=== PATIENT | female | born 1940 ===

== ENCOUNTER 2017-02-26 06:09 | Observation (INO) | payer MEDICARE, OTHER ==
--- NOTE | 2017-02-26 06:50 | ED PDOC ---
Arrival/HPI - General Chief Complaint: Shortness Of Breath Time Seen by Provider: 02/26/17 06:28 - History of Present Illness Narrative History of Present Illness (Text): 02/26/17 06:47 Pt. to ED PMHX of HTN,Dementia with c/o vague chest discomfort this AM associated with some SOB.As per the family pt. has been experiencing sob past few days.No fever,chills or cough.No N/V/D. Past Medical History - Provider Review Nursing Documentation Reviewed: Yes - Travel History Have you recently traveled outside [place] w/in the past 3 mons?: No - Infectious Disease Hx of Infectious Diseases: None - Reproductive Menopause: Yes - Cardiac Hx Hypertension: Yes - Psychiatric Hx Substance Use: No Family/Social History - Physician Review Nursing Documentation Reviewed: Yes Family/Social History: CAD/WA Smoking Status: Never Smoked Hx Alcohol Use: No Hx Substance Use: No Allergies/Home Meds Allergies/Adverse Reactions: Allergies No Known Allergies Allergy (Verified 08/10/14 11:39) Home Medications: Home Meds Medication Instructions Recorded Confirmed Ezetimibe [Zetia] 10 mg PO DAILY 08/10/14 02/26/17 Aspirin [Adult Low Dose Aspirin EC] 81 mg PO DAILY 05/23/16 02/26/17 Famotidine [Pepcid] 40 mg PO HS 05/23/16 02/26/17 Olmesartan Medoxomil 20 mg PO DAILY 05/23/16 02/26/17 [id number] Ethyl Esters 1 GM 2 tsp PO DAILY 05/23/16 02/26/17 [Lovaza] Cholecalciferol (Vitamin D3) 5 drop PO DAILY 02/26/17 02/26/17 [Vitamin D3] Coenzyme Q10 [Co Q-10] 50 mg PO BID 02/26/17 02/26/17 Donepezil HCl [Aricept] 5 mg PO HS 02/26/17 02/26/17 Famotidine [Pepcid] 40 mg PO HS 02/26/17 02/26/17 Multivit-Min/FA/Lycopen/Lutein 1 tab PO DAILY 02/26/17 02/26/17 [Centrum Silver Tablet] Pantoprazole [Protonix] 40 mg PO DAILY 02/26/17 02/26/17 Review of Systems - Review of Systems Constitutional: Normal Eyes: Normal ENT: Normal Respiratory: SOB Cardiovascular: Chest Pain Gastrointestinal: Normal Genitourinary Female: Normal Musculoskeletal: Normal Skin: Normal Neurological: Normal Endocrine: Normal Hemo/Lymphatic: Normal Psychiatric: Normal Physical Exam Vital Signs Temp Pulse Resp BP Pulse Ox 02/26/17 06:09 97.5 F L 71 26 H 157/96 H 99 Temperature: Afebrile Blood Pressure: Normal Pulse: Regular Respiratory Rate: Normal Appearance: Positive for: Well-Appearing, Non-Toxic, Comfortable Pain Distress: None Mental Status: Positive for: Alert and Oriented X 3 - Systems Exam Head: Present: Atraumatic, Normocephalic Pupils: Present: PERRL Extroacular Muscles: Present: EOMI Conjunctiva: Present: Normal Mouth: Present: Moist Mucous Membranes Neck: Present: Normal Range of Motion Respiratory/Chest: Present: Clear to Auscultation, Good Air Exchange. No: Respiratory Distress, Accessory Muscle Use Cardiovascular: Present: Regular Rate and Rhythm, Normal S1, S2. No: Murmurs Abdomen: Present: Normal Bowel Sounds. No: Tenderness, Distention, Peritoneal Signs Back: Present: Normal Inspection Upper Extremity: Present: Normal Inspection. No: Cyanosis, Edema Lower Extremity: Present: Normal Inspection, Normal ROM, Neurovascularly Intact. No: Edema, Emma's Sign, Tenderness, Swelling, Erythema Neurological: Present: GCS=15, CN II-XII Intact, Speech Normal, Motor Func Grossly Intact, Normal Sensory Function Skin: Present: Warm, Dry, Normal Color. No: Rashes Psychiatric: Present: Alert, Oriented x 3, Normal Insight, Normal Concentration Medical Decision Making - RAD Interpretation Radiology Orders: 02/26/17 06:24 CHEST PORTABLE [RAD] Stat - Transfer of Care Patient signed out to Dr:: Izabella Pending Labs:: Labs/CXR/EKG/reassess/final disposition Disposition/Present on Arrival - Present on Arrival Any Indicators Present on Arrival: No History of DVT/PE: No History of Uncontrolled Diabetes: No Urinary Catheter: No - Disposition Have Diagnosis and Disposition been Completed?: No Diagnosis: Chest pain, Shortness of breath Disposition Time: 07:00 Condition: STABLE Discharge Instructions (ExitCare): Chest Pain (ED) Forms: [employer] (Welsh)
[2017-02-26 07:00] LABS: BASO # 0.04 K/mm3 (0.0-2.0); BASO % 0.7 % (0.0-3.0); EOS # 0.1 (0.0-0.7); EOS % 1.4 % (1.5-5.0); GRAN # 2.31 (1.4-6.5); GRAN % 41.7 % (50.0-68.0); HEMOGLOBIN 12.2 g/dL (12.0-16.0); LYMPH # 2.8 (1.2-3.4); LYMPH % 49.5 % (22.0-35.0); MEAN CELL VOLUME 87.9 fl (80.0-105.0); MEAN CORPUSCULAR HGB CONC 33.1 g/dl (31.0-37.0); MEAN PLATELET VOLUME 10.5 fl (7.0-11.0); MONO # 0.4 (0.1-0.6); MONO % 6.7 % (1.0-6.0); RBC 4.2 10^6/uL (3.5-6.1); RED CELL DISTRIBUTION WIDTH 14.3 % (11.5-14.5); WHITE BLOOD COUNT 5.6 10^3/ul (4.5-11.0)
[2017-02-26 07:05] LABS: ALB/GLOB RATIO 1.4 (1.1-1.8); ALBUMIN 4.1 g/dL (3.0-4.8); ALT/SGPT 24 U/L (7-56); AST/SGOT 29 U/L (14-36); BLOOD UREA NITROGEN 18 mg/dL (7-21); CALCIUM 9.7 mg/dL (8.4-10.5); GFR AFRICAN-AMERICAN 53; GFR NON-AFRICAN AMERICAN 44
[2017-02-26 07:06] LABS: PARTIAL THROMBOPLASTIN TIME 28.5 Seconds (25.1-36.5); PROTHROMBIN TIME 11.5 SECONDS (9.4-12.5)
[2017-02-26 07:18] LABS: TROPONIN I < 0.01 ng/mL
--- NOTE | 2017-02-26 09:33 | RAD ---
HISTORY: sob COMPARISON: 12/05/2015 FINDINGS: LUNGS: No active pulmonary disease. PLEURA: No significant pleural effusion identified, no pneumothorax apparent. CARDIOVASCULAR: Normal. OSSEOUS STRUCTURES: No significant abnormalities. VISUALIZED UPPER ABDOMEN: Normal. OTHER FINDINGS: None. IMPRESSION: No active disease.
[2017-02-26] MEDS ORDERED: OLMESARTAN MEDOXOMIL 20 MG PO SCH ×2 (10:00)
--- NOTE | 2017-02-26 10:02 | ED PDOC ---
Physical Exam Vital Signs Reviewed: Yes Vital Signs Temp Pulse Resp BP Pulse Ox 02/26/17 09:57 73 02/26/17 08:31 61 18 134/78 100 02/26/17 06:09 97.5 F L 71 26 H 157/96 H 99 Appearance: Positive for: Well-Appearing, Non-Toxic, Comfortable Medical Decision Making ED Course and Treatment: 02/26/17 09:57 Patient endorsed to me from previous shift. Prior labs and EKG reviewed. I reviewed history with family at bedside and re-examined patient. Patient on re-exam with no complaints. Currently denies any chest pain or shortness of breath, although sons describe patient at 530 am experienced chest discomfort and was "breathing hard". Currently those symptoms resolved, cxr unremarkable. EKG with t wave changes with no prior for comparison. It is noted Dr. Wilson is her exchange clerk and she had stress test in May of 2016 which was reportedly unremarkable. ASA ordered. Dr. Ames consulted an evaluated patient. She remains comfortable at this time, patient admitted to hospitalist service covering fro Dr. Samaniego. - Lab Interpretations Lab Results: 02/26/17 06:30 02/26/17 06:30 Lab Results 02/26/17 06:50: NT-Pro-B Natriuret Pep 155 02/26/17 06:30: Sodium 142, Potassium 3.8, Chloride 104, Carbon Dioxide 25, Anion Gap 16, BUN 18, Creatinine 1.2, Est GFR ( Amer) 53, Est GFR (Non- Af Amer) 44, Random Glucose 106, Calcium 9.7, Total Bilirubin 1.4 H, AST 29, ALT 24, Alkaline Phosphatase 56, Lactate Dehydrogenase 356, Total Creatine Kinase 63, Troponin I < 0.01, Total Protein 7.2, Albumin 4.1, Globulin 3.0, Albumin/Globulin Ratio 1.4 02/26/17 06:30: PT 11.5, INR 1.00, APTT 28.5 02/26/17 06:30: WBC 5.6, RBC 4.20, Hgb 12.2, Hct 36.9, MCV 87.9, MCH 29.0, MCHC 33.1, RDW 14.3, Plt Count 215, MPV 10.5, Gran % 41.7 L, Lymph % (Auto) 49.5 H, Bowman % (Auto) 6.7 H, Eos % (Auto) 1.4 L, Baso % (Auto) 0.7, Gran # 2.31, Lymph # 2.8, Bowman # 0.4, Eos # 0.1, Baso # 0.04 - RAD Interpretation Radiology Orders: 02/26/17 06:24 CHEST PORTABLE [RAD] Stat - Medication Orders Current Medication Orders: Aspirin (Ecotrin) 81 mg PO DAILY [facility] Last Admin: 02/26/17 09:16 Dose: Ezetimibe (Zetia) 10 mg PO DAILY [facility] Last Admin: 02/26/17 09:57 Dose: 10 mg Famotidine (Pepcid) [address] [facility] Losartan Potassium (Cozaar) 50 mg PO DAILY [facility] Last Admin: 02/26/17 09:57 Dose: 50 mg MAR Pulse and Blood Pressure Document 02/26/17 09:57 SRE (Rec: 02/26/17 09:57 SRE [id number]) Pulse Pulse Rate (60-90 beats/min) 73 Discontinued Medications Aspirin (Aspirin Chewable) 81 mg PO STAT STA Stop: 02/26/17 07:29 Last Admin: 02/26/17 08:06 Dose: Aspirin (Aspirin Chewable) 324 mg PO STAT STA Stop: 02/26/17 08:03 Last Admin: 02/26/17 08:18 Dose: 324 mg Aspirin (Aspirin) 325 mg PO STAT STA Stop: 02/26/17 08:03 Last Admin: 02/26/17 08:06 Dose: Clopidogrel Bisulfate (Plavix) 300 mg PO STAT STA Stop: 02/26/17 08:04 Last Admin: 02/26/17 08:18 Dose: 300 mg Disposition/Present on Arrival - Present on Arrival Any Indicators Present on Arrival: No History of DVT/PE: No History of Uncontrolled Diabetes: No Urinary Catheter: No History of Decub. Ulcer: No History Surgical Site Infection Following: None - Disposition Have Diagnosis and Disposition been Completed?: Yes Diagnosis: Chest pain, Shortness of breath Disposition: HOSPITALIZED Disposition Time: 08:45 Patient Plan: Admission, Telemetry Patient Problems: Current Active Problems Problem Status Onset Chest pain Acute Shortness of breath Acute Condition: STABLE
--- NOTE | 2017-02-26 11:22 | CP.PCM.HP ---
<Phyllis Desai - Last Filed: 02/26/17 13:35> History of Present Illness - History of Present Illness History of Present Illness: PGY-2 H&P for hospitalist service 76 yo female with PMH of HTN, [id number], gastric ulcer and dementia presents to ED with chest discomfort. Patient states that this morning she was sitting on her cough when she began to have a warm sensation in the middle of her chest. She denies any radiation to her neck, arms, back or abd. It resolved when she received oxygen from EMS. She states that she started panting and became lightheaded during the episode. She also states that over the past week she has had an intermittent pinching sensation in her chest. She denies any previous episodes. She states that oit is not associated with eating or position. She also reports increased fatigue. She denies fever, chill, abd pain , n/v, diarrhea, decreased appetite. Family states that a few months ago she began taking donepezil for increased forgetfulness. PMH: TN, [id number], gastric ulcer and dementia PSH: denies suegry previous EGD social history: deneis smoking, alcohol use, illicit drug use allergy: nkda family history: brothers- heart disease Present on Admission - Present on Admission Any Indicators Present on Admission: No Review of Systems - Constitutional Constitutional: Fatigue. absent: Chills, Fever, Headache - EENT Eyes: absent: Change in Vision Nose/Mouth/Throat: absent: Nasal Congestion, Nasal Discharge, Sore Throat - Cardiovascular Cardiovascular: Chest Pain, Dyspnea, Lightheadedness. absent: Edema, Leg Edema , Leg Ulcers, Syncope - Respiratory Respiratory: Dyspnea. absent: Cough, Hemoptysis - Gastrointestinal Gastrointestinal: absent: Abdominal Pain, Constipation, Diarrhea, Dysphagia, Nausea, Vomiting - Genitourinary Genitourinary: absent: Difficulty Urinating, Dysuria - Musculoskeletal Musculoskeletal: absent: Abnormal Gait, Back Pain, Neck Pain, Radiating Pain into Limb - Neurological Neurological: absent: Abnormal Gait, Dizziness, Focal Weakness, Syncope - Hematologic/Lymphatic Hematologic: absent: Easy Bleeding, Easy Bruising Past Patient History - Infectious Disease Hx of Infectious Diseases: None - Past Social History Smoking Status: Never Smoked - CARDIAC Hx Hypertension: Yes - PSYCHIATRIC Hx Substance Use: No Meds Allergies/Adverse Reactions: Allergies Allergy/AdvReac Type Severity Reaction Status Date / Time No Known Allergies Allergy Verified 02/26/17 12:02 Physical Exam - Constitutional Appears: Well, No Acute Distress - Head Exam Head Exam: ATRAUMATIC, NORMAL INSPECTION, NORMOCEPHALIC - Eye Exam Eye Exam: Normal appearance - ENT Exam ENT Exam: Mucous Membranes Moist - Respiratory Exam Respiratory Exam: Clear to Auscultation Bilateral, NORMAL BREATHING PATTERN. absent: Rhonchi, Wheezes, Respiratory Distress, Stridor - Cardiovascular Exam Cardiovascular Exam: REGULAR RHYTHM, +S1, +S2. absent: Tachycardia, Diastolic murmur, Systolic Murmur - GI/Abdominal Exam GI & Abdominal Exam: Normal Bowel Sounds, Soft. absent: Distended, Firm, Tenderness - Extremities Exam Extremities exam: Positive for: normal inspection. Negative for: pedal edema, tenderness - Neurological Exam Neurological exam: Alert, Oriented x3 - Skin Skin Exam: Dry, Intact, Normal Color, Warm Results - Vital Signs Recent Vital Signs: Last Vital Signs Temp 97.5 F L 02/26/17 06:09 Pulse 72 02/26/17 10:01 Resp 14 02/26/17 10:01 BP 150/88 02/26/17 10:01 Pulse Ox 100 02/26/17 10:01 - Labs Result Diagrams: 02/26/17 06:30 02/26/17 06:30 Assessment & Plan - Assessment and Plan (Free Text) Assessment: 76 yo female with PMH of HTN, [id number], gastric ulcer and dementia presents to ED with chest discomfort. Plan: 1. chest discomfort - r/o acs - troponins neg x2, continue to trend - EKG showed sinus rhythm with 1st degree AV block, nonspecific T wave abnormalities, no previous ekg for comparison - continue home meds asa 81mg and zetia - continue ARB - consider started b carrie if chest pain returns - cardiology consulted, will go or cardiac cath this afternoon GI ppx- pepcid DVT ppx- SCDs <Alfreda Jin - Last Filed: 02/26/17 16:29> Results - Vital Signs Recent Vital Signs: Last Vital Signs Temp 98.1 F 02/26/17 13:46 Pulse 74 02/26/17 13:46 Resp 18 02/26/17 13:46 BP 141/72 02/26/17 13:46 Pulse Ox 99 02/26/17 13:10 - Labs Result Diagrams: 02/26/17 06:30 02/26/17 06:30 Labs: Laboratory Results - last 24 hr 02/26/17 11:50 Troponin I < 0.01 Attending/Attestation - Attestation I have personally seen and examined this patient.: Yes I have fully participated in the care of the patient.: Yes I have reviewed all pertinent clinical information: Yes Notes (Text): 02/26/17 16:27 Patient was seen and examined with medical scientific liaison. Family at bed side 76 yo female with PMH of HTN, [id number], gastric ulcer and dementia present with atypical chest pain,EKG shwed T wave inversion in septal lead.Patient was evaluated by cardiology and is scheduled for cardiac cath today.We will follow up cardiac cath Management plan was discussed in detail with patient and family in detail. Education was provided.
--- NOTE | 2017-02-26 12:21 | CARD ---
APPROVED REPORT EKG Measurement Heart [id number] MA [id number] <Conclusion> Sinus rhythm with 1st degree AV block Nonspecific T wave abnormality Abnormal ECG
[2017-02-26 13:02] VITALS: O2SAT 99
[2017-02-26 14:01] VITALS: BMI 23.3
[2017-02-26] MEDS ORDERED: Influenza Vaccine 60 mcg/0.5 mL SYR (4YR UP) IM ONE (14:01)
[2017-02-26] MEDS ORDERED: Pneumococcal 23-Valent Vaccine IM ONE (14:01)
[2017-02-26] MEDS ORDERED: Iodixanol 320 MG/ML 100 ML BOTTLE IV ONE (14:34)
[2017-02-26] MEDS ORDERED: Lidocaine 2% Inj (20ml) ONE (14:34)
[2017-02-26] MEDS ORDERED: Nitroglycerin 50mg in D5W 50 MG/250 ML BOTTLE IV ONE (14:35)
[2017-02-26] MEDS ORDERED: Iodixanol 320 MG/ML 200 ML BOTTLE IV ONE (14:35)
[2017-02-26] MEDS ORDERED: HEPARIN SODIUM/NS 2,000 ML IV ONE (14:35)
[2017-02-26] MEDS ORDERED: Midazolam 2 MG/2 ML VIAL ONE (15:15)
[2017-02-26] MEDS ORDERED: Sodium Chloride 0.9% 1,000 ML IV SCH (16:15)
--- NOTE | 2017-02-26 17:38 | CARD ---
APPROVED REPORT Procedure(s) performed: Left Heart Catheterization HISTORY The patient is a 76 year-old female with a history of : peripheral vascular disease, hypertension , dyslipidemia , Admitted with ACS/ unstable angina. INDICATION The indication(s) include : unstable angina . CASE TECHNIQUE The patient was brought emergently to the Cardiac Catheterization Laboratory in a fasting state and was prepped and draped in a sterile manner. The right femoral groin was infiltrated with 2% Lidocaine subcutaneous anesthesia. A 6FR Tempered MindDESACLEDA Bank ACCESS KIT sheath was inserted into the right femoral artery without difficulty. Coronary angiography was performed using coronary diagnostic catheters. The left coronary system was accessed and visualized with a Diagnostic,5 Fr JL 4 catheter. The right coronary system was accessed and visualized with a Diagnostic ,5 Fr JR 4 catheter. The left ventricle was accessed and visualized with a 5 Fr Pigtail 145 (Angled) catheter. Left ventricular/Aortic Valve gradient assessed on pullback. Left ventriculogram was performed in [place] projection. Closure device was deployed with a 6 Fr / 7 Fr MynxGrip without any complications. The patient tolerated the procedure well and there were no complications associated with the procedure. Vessel Analysis The patient's coronary anatomy is right dominant. The left main coronary artery is a large size vessel with intimal irregularities and without significant stenosis. The left main trifurcates to the left anterior descending, circumflex, and ramus. The left anterior descending artery is a medium size vessel with diffuse calcification noted throughout this vessel and without significant stenosis. The first diagonal branch is a small size vessel with intimal irregularities and without significant stenosis. The second diagonal branch is a small size vessel with intimal irregularities and without significant stenosis. The third diagonal branch is a small size vessel with intimal irregularities and without significant stenosis. The circumflex artery is a medium size vessel with diffuse calcification noted throughout this vessel and without significant stenosis. There is a 55% stenosis in the very distal segment. The first obtuse marginal branch is a medium size vessel with intimal irregularities and without significant stenosis. The ramus intermedius artery is a medium size vessel with intimal irregularities and without significant stenosis. The right coronary artery is a large size vessel with intimal irregularities and without significant stenosis. The right posterior descending artery is a large size vessel without significant stenosis. Left Ventricle The left ventricle is normal in size with normal contractility. There was no cardiomyopathy. The left ventricular ejection fraction is estimated to be 55-60%. The left ventricular end diastolic pressure is 16 mmHg. There was no gradient across the aortic valve upon pullback. Conclusion Non- Obstructive CAD limited to very distal Cx, Preserved LV Fx. EF-55-60%, EDP-16 mmof hg. Recommendations Aggressive Medical TherapyCardiac Risk Reduction Program cc; Drs. Bueno / Steve.
--- NOTE | 2017-02-26 19:26 | CON ---
DATE: 02/26/2017 REASON FOR CONSULTATION: Followup chest pain, unstable angina. BRIEF CLINICAL HISTORY: A 76-year-old female with past medical history of gastroesophageal reflux, hypertension, hyperlipidemia, came in with a chest pain. The patient said that she woke up from the chest pain, tightness in the chest, and feeling burning sensation in the tarso. Denies any nausea or vomiting. Denies any diaphoresis. Feels later on palpitations, but no chest pain. The chest pain is completely resolved by the time the patient came to the ER. PAST MEDICAL HISTORY: Significant for hypertension, hyperlipidemia, history of stress test in 05/2016. CURRENT MEDICATION: The patient at home is taking vitamin D3, Pitcher 3, coenzyme, Aricept, Pepcid, Zetia, olmesartan, aspirin, famotidine and Pepcid. ALLERGIES: NO KNOWN DRUG ALLERGY. PREVIOUS CARDIAC WORKUP: As follows, the patient had a stress test in 05/2015, that shows essentially normal myocardial perfusion study. Ejection fraction 70%, in compared to last on 08/10/2014, there is no significant change. No segmental wall motion abnormality is noted. The patient has echo done in Dr. Wilson's office which shows no significant problem as per son. He is not available as of yet for review. REVIEW OF SYSTEMS: A 14-point review of the system as per HPI. PHYSICAL EXAMINATION VITAL SIGNS: Temperature afebrile, heart rate 60, blood pressure 134/78. HEENT: PERRLA. Extraocular muscles intact. NECK: Supple. No carotid bruits or thyromegaly. CHEST: Clear to auscultation. HEART: S1 and S2 regular. ABDOMEN: Soft. EXTREMITIES: Clubbing or cyanosis negative. LABORATORY DATA: EKG shows normal sinus. T-wave inversion IV, V, II, III and lead V2, V3. Blood workup as follows; WBC 5.6, hemoglobin 12.8, hematocrit 36.9 and platelet count 215. Chemistry shows sodium 140, potassium 3.8, chloride 104, carbon dioxide 25, anion gap of 16, BUN 16, and creatinine 1.2. BNP 155. Troponin 0.11. IMPRESSION: Unstable angina, hypertension, hyperlipidemia, multiple coronary artery disease. The patient has a stress test in 05/2016, essentially negative. The patient was admitted with chest pain, tightness in the chest, and palpitations. Typical unstable angina. RECOMMENDATIONS: Discussed with the patient, the patient agreed. We will proceed for cardiac catheterization. Further recommend after the cardiac catheterization. We will follow with you. Thank you Dr. Sena, for providing us the opportunity in taking care of the patient, Peyton Wyman. Alfreda Ames MD
[2017-02-27 05:50] VITALS: RESP 20; TEMP 97.7
[2017-02-27 06:30] LABS: BASO # 0.03 K/mm3 (0.0-2.0); BASO % 0.5 % (0.0-3.0); EOS # 0.1 (0.0-0.7); EOS % 1.4 % (1.5-5.0); GRAN # 3.35 (1.4-6.5); GRAN % 52.9 % (50.0-68.0); HEMOGLOBIN 11.5 g/dL (12.0-16.0); LYMPH # 2.4 (1.2-3.4); LYMPH % 38.3 % (22.0-35.0); MEAN CELL VOLUME 88.4 fl (80.0-105.0); MEAN CORPUSCULAR HEMOGLOBIN 29.6 pg (25.0-35.0); MEAN CORPUSCULAR HGB CONC 33.5 g/dl (31.0-37.0); MEAN PLATELET VOLUME 10.3 fl (7.0-11.0); MONO # 0.4 (0.1-0.6); MONO % 6.9 % (1.0-6.0); RBC 3.88 10^6/uL (3.5-6.1); RED CELL DISTRIBUTION WIDTH 14.5 % (11.5-14.5); WHITE BLOOD COUNT 6.3 10^3/ul (4.5-11.0)
[2017-02-27 06:49] LABS: ALB/GLOB RATIO 1.3 (1.1-1.8); ALBUMIN 3.6 g/dL (3.0-4.8); CALCIUM 8.9 mg/dL (8.4-10.5)
[2017-02-27 09:02] VITALS: BP 153/77
--- NOTE | 2017-02-27 10:43 | CP.PCM.DIS ---
Provider - Provider Date of Admission: 02/26/17 07:55 Attending physician: Anu Sena MD Hospital Course - Lab Results Lab Results: Most Recent Lab Values WBC 6.3 10^3/ul (4.5-11.0) 02/27/17 05:30 RBC 3.88 10^6/uL (3.5-6.1) 02/27/17 05:30 Hgb 11.5 g/dL (12.0-16.0) L 02/27/17 05:30 Hct 34.3 % (36.0-48.0) L 02/27/17 05:30 MCV 88.4 fl (80.0-105.0) 02/27/17 05:30 MCH 29.6 pg (25.0-35.0) 02/27/17 05:30 MCHC 33.5 g/dl (31.0-37.0) 02/27/17 05:30 RDW 14.5 % (11.5-14.5) 02/27/17 05:30 Plt Count 177 10^3/uL (120.0-450.0) 02/27/17 05:30 MPV 10.3 fl (7.0-11.0) 02/27/17 05:30 Gran % 52.9 % (50.0-68.0) 02/27/17 05:30 Lymph % (Auto) 38.3 % (22.0-35.0) H 02/27/17 05:30 Hartley % (Auto) 6.9 % (1.0-6.0) H 02/27/17 05:30 Eos % (Auto) 1.4 % (1.5-5.0) L 02/27/17 05:30 Baso % (Auto) 0.5 % (0.0-3.0) 02/27/17 05:30 Gran # 3.35 (1.4-6.5) 02/27/17 05:30 Lymph # 2.4 (1.2-3.4) 02/27/17 05:30 Hartley # 0.4 (0.1-0.6) 02/27/17 05:30 Eos # 0.1 (0.0-0.7) 02/27/17 05:30 Baso # 0.03 K/mm3 (0.0-2.0) 02/27/17 05:30 PT 11.5 SECONDS (9.4-12.5) 02/26/17 06:30 INR 1.00 (0.93-1.08) 02/26/17 06:30 APTT 28.5 Seconds (25.1-36.5) 02/26/17 06:30 Sodium 140 mmol/L (132-148) 02/27/17 05:20 Potassium 3.8 mmol/L (3.6-5.0) 02/27/17 05:20 Chloride 109 mmol/L (98-107) H 02/27/17 05:20 Carbon Dioxide 23 mmol/L (21-33) 02/27/17 05:20 Anion Gap 12 (10-20) 02/27/17 05:20 BUN 17 mg/dL (7-21) 02/27/17 05:20 Creatinine 1.1 mg/dl (0.7-1.2) 02/27/17 05:20 Est GFR ( Amer) 58 02/27/17 05:20 Est GFR (Non-Af Amer) 48 02/27/17 05:20 Random Glucose 97 mg/dL (70-110) 02/27/17 05:20 Calcium 8.9 mg/dL (8.4-10.5) 02/27/17 05:20 Total Bilirubin 1.6 mg/dL (0.2-1.3) H 02/27/17 05:20 AST 33 U/L (14-36) 02/27/17 05:20 ALT 22 U/L (7-56) 02/27/17 05:20 Alkaline Phosphatase 49 U/L (38-126) 02/27/17 05:20 Lactate Dehydrogenase 356 U/L (333-699) 02/26/17 06:30 Total Creatine Kinase 63 U/L (35-230) 02/26/17 06:30 Troponin I < 0.01 ng/mL 02/26/17 11:50 NT-Pro-B Natriuret Pep 155 pg/mL (0-450) 02/26/17 06:50 Total Protein 6.4 g/dL (5.8-8.3) 02/27/17 05:20 Albumin 3.6 g/dL (3.0-4.8) 02/27/17 05:20 Globulin 2.8 gm/dL 02/27/17 05:20 Albumin/Globulin Ratio 1.3 (1.1-1.8) 02/27/17 05:20 Discharge Exam - Head Exam Head Exam: ATRAUMATIC, NORMAL INSPECTION, NORMOCEPHALIC Discharge Plan - Follow Up Plan Condition: STABLE Disposition: HOME/ ROUTINE Instructions: Heart Healthy Diet (DC), Heart Catheterization (DC), Coronary Artery Disease in Women (DC) Additional Instructions: Please continue home medications including aspirin. Please follow up with Dr. Wilson
[2017-02-27 10:51] VITALS: PULSE 73
--- NOTE | 2017-02-27 23:55 | PN ---
DATE: REASON FOR CONSULTATION AND FOLLOWUP: Chest pain, unstable angina. SUBJECTIVE: The patient denies any chest pain, shortness of breath, or any palpitations. OBJECTIVE: GENERAL: Not in apparent distress. VITAL SIGNS: Temperature afebrile, heart rate 60, blood pressure . HEENT: PERRLA, intact. NECK: Supple. No carotid bruits or thyromegaly. CHEST: Clear to auscultation. HEART: S1 and S2 regular. ABDOMEN: Soft. EXTREMITIES: Clubbing and cyanosis negative. LABORATORY DATA: WBC 6.8, hemoglobin 11.5, hematocrit 34.3, and platelet count 177. Chemistry shows sodium 140, potassium 3.8, chloride 109, carbon dioxide 23, anion gap of 12, BUN of 17, and creatinine of 1.1. Total bilirubin is 1.6. Troponin 0.01. IMPRESSION: Unstable angina, status post cardiac catheterization that revealed nonobstructive coronary artery disease distal circumflex, preserved left ventricle function, EDP was in the range of 16. RECOMMENDATION: Aggressive medical treatment, follow up with Dr. Wilson. Thank you Dr. Sena for providing us the opportunity in taking care of Peyton Wyman. The patient is okayed to be discharged. Right groin area looks okay. Alfreda Ames MD
== END 2017-02-27 11:25 | disposition home or self-care (01) ==
LOC: ED 06:09 → ERH 07:55 → 3RSO 13:23 → 2RSO 16:21
PROVIDERS: ADMIT Internal Medicine; ATTEND Internal Medicine
DX: I25.110 Atherosclerotic heart disease of native coronary artery with unstable angina pectoris (principal); I10 Essential (primary) hypertension; I73.9 Peripheral vascular disease, unspecified; K21.9 Gastro-esophageal reflux disease without esophagitis; F03.90 Unspecified dementia, unspecified severity, without behavioral disturbance, psychotic disturbance, mood disturbance, and anxiety; E78.5 Hyperlipidemia, unspecified; Z87.11 Personal history of peptic ulcer disease; Z79.82 Long term (current) use of aspirin
CPT/HCPCS: 36415; 71045; 80053; 82550; 83615; 83880; 84484; 85025; 85610; 85730; 93005; 93458; 99152; 99285; C1760; C1769; C1887; G0378; J1644; J2250; J3010; J7040

== ENCOUNTER 2018-06-24 07:58 | Outpatient (CLI) | payer MEDICARE, OTHER | END 2018-06-24 07:59 | disposition home or self-care (01) | LOC: CARDIO 07:58 | DX: R00.2 Palpitations (principal); I10 Essential (primary) hypertension; R07.89 Other chest pain ==